=== PATIENT | male | born 1965 | race Caucasian/White ===

== ENCOUNTER 2017-01-21 17:02 | Emergency (ER) | payer MEDICAID, OTHER ==
[~2017-01-21] VITALS: Wt 90.9 kg
[2017-01-21] MEDS ORDERED: ACET500C5 PO (17:55)
[2017-01-21] MEDS ORDERED: ONDA4TAB14 PO (17:55)
[2017-01-21] MEDS ORDERED: AMOX1TAB10 PO (17:55)
--- NOTE | 2017-01-21 18:02 | ERD ---
ER Documentation Chief Complaint Date/Time DATE: 01/21/17 TIME: 17:57 Chief Complaint mackenzie s/p head trauma x2 wks ago. HPI Patient is a 51-year-old male who presents to the emergency department with a headache status post head injury approximately 2 weeks ago. Patient states on , he was cutting down wood at a friend's house when a piece of wood flew and hit him in the head. Patient at that time was seen at outside hospital. Patient states he had a laceration which was repaired with glue however he is unsure of he had any imaging studies done. Patient states he did lose consciousness at that time. Since this injury, patient continues to have pain in the occipital region. Patient reports nausea however he denies any vomiting , confusion, excessive sleepiness, loss of consciousness. Patient reports normal appetite. Patient is able to ambulate without any difficulty. Patient denied any blood thinner use. Patient also complaining of right molar pain. Patient states that he saw a dentist 2 months ago and was told he would need a root canal at that time. Patient has not followed up with the dentist. Patient denies any fevers, chills , active bleeding or discharge. Patient has normal range of motion of his neck. Patient denies any neck pain or neck stiffness. ROS All systems reviewed and are negative except as per history of present illness. Medications Home Meds Active Scripts Amoxicillin/Potassium Clav (Amox-Clav 875-125 mg Tablet) 875-125 mg Tab, 1 TAB PO BID for 7 Days, #14 TAB Prov:MANA FERRERA PA-C 01/21/17 Ondansetron (Ondansetron Odt) 4 Mg Tab.rapdis, 4 MG PO Q6H Y for NAUSEA AND/OR VOMITING, #10 TAB Prov:MANA FERRERA PA-C 01/21/17 Acetaminophen* (Tylophen*) 500 Mg Capsule, 1 CAP PO Q6H Y for PAIN AND OR ELEVATED TEMP, #20 CAP Prov:MANA FERRERA PA-C 01/21/17 PMhx/Soc History of Surgery: No Anesthesia Reaction: No Hx Neurological Disorder: No Hx Respiratory Disorders: No Hx Cardiac Disorders: No Hx Psychiatric Problems: No Hx Miscellaneous Medical Probl: No Hx Alcohol Use: Yes Hx Substance Use: Yes Hx Tobacco Use: Yes FmHx Family History: diabetes Physical Exam Vitals Vital Signs Date Time Temp Pulse Resp B/P Pulse Ox O2 Delivery O2 Flow Rate FiO2 01/21/17 19:28 98.3 78 18 148/88 98 Room Air 01/21/17 17:15 98.4 74 20 162/101 98 Physical Exam GENERAL: Well-developed, well-nourished male. Appears in no acute distress. Speaking in full sentences HEAD: Normocephalic, atraumatic. No deformities or ecchymosis. No scalp hematomas or swelling noted. Peeling dermabond noted in the patient's left parietal scalp. No active bleeding. Nontender to palpation of bilateral mastoid processes, no ecchymosis noted. EYE: Pupils equal, round, and reactive to light. EOMs intact. No conjunctival erythema. No eye discharge. No periorbital ecchymosis. ENT: External ear without any masses or tenderness. Auditory canals clear bilaterally. No hematotympanum bilaterally. TM visualized bilaterally, non- erythematous, non-bulging. Nasal mucosa pink with no discharge. Oropharynx is pink without any tonsillar erythema or exudates. No uvula deviation. No kissing tonsils. Poor dentition noted of the right molars. Right molars tender to palpation. NECK: Supple. No meningismus. Normal ROM of the neck. No neck stiffness noted. No cervical spine midline tenderness. LUNG: Clear to auscultation bilaterally. No rhonchi, wheezing, rales or coarse breath sounds. HEART: Regular rate and rhythm. No murmurs, rubs or gallops. BACK: No midline tenderness. EXTREMITIES: Equal pulses bilaterally. No peripheral clubbing, cyanosis or edema. No unilateral leg swelling. NEUROLOGIC: Alert and oriented x3, cooperative. Mood and affect appropriate to situation. Cranial nerves II through XII are grossly intact. Normal speech. Motor exam: 5/5 strength in upper and lower extremities. Sensory exam: Sensation intact to light touch on all four extremities. Cerebellar function exam: Rapid alternating movements intact. No dysmetria on vufmll-jj-[id number] test. Steady gait. No pronator drift. SKIN: Normal color. Warm and dry. No rashes or lesions. Procedures/MDM ED COURSE: The patient was stable throughout ED course. I kept the patient and/or family informed of laboratory and diagnostic imaging results throughout the ED course. DIAGNOSTIC IMAGING: Read by radiologist. DIAGNOSTIC IMAGING REPORT Patient: ALICIA RUELAS : 1965 Age: 51 Sex: M MR #: [id number] DOS: 01/21/17 1746 Ordering MD: MANA FERRERA PA-C Location: [facility] Room/Bed: PROCEDURE: CT Head without. CLINICAL INDICATION: Headaches status post trauma. TECHNIQUE: The study was performed utilizing a multi-slice, multidetector CT scanner. Direct spiral 1 mm axial sections were obtained through the head without the use of intravenous contrast material. 1 or more of the following dose reduction techniques were utilized: Automated exposure control, adjustment of the mA and/or kV according to patient's size, iterative reconstruction technique. Coronal and sagittal reformations were obtained. The images were reviewed on a PACS workstation. RADIATION DOSE: CTDIvol: 42.4 mGy DLP: 720.2 a.m. mGy-cm COMPARISON: No prior studies are available for comparison. FINDINGS: There is no intracranial hemorrhage, extra-axial fluid collection, mass lesion, midline shift or hydrocephalus. The ventricles, sulci and cisterns are within normal limits. The white matter is unremarkable. The bowser-white matter differentiation is preserved. The basal cisterns are patent. The midline structures are intact. There is mild soft tissue swelling in the frontal region without evidence of underlying calvarial fracture. The orbits are normal in appearance. The visualized paranasal sinuses, mastoid air cells and middle ear cavities are normally aerated. IMPRESSION: 1. No acute intracranial abnormality. No intracranial hemorrhage, extra-axial fluid collection, mass lesion or hydrocephalous. 2. Soft tissue swelling in the frontal region without evidence of underlying calvarial fracture. RPTAT: HGAS .Washington Orozco MD, MD Date Time Electronically viewed and signed by .Washington Orozco MD, MD on 01/21/2017 18: 54 .S/ CC: MANA FERRERA PA-C DIAGNOSTIC IMAGING REPORT Patient: ALICIA RUELAS : 1965 Age: 51 Sex: M MR #: [id number] DOS: 01/21/17 1746 Ordering MD: MANA FERRERA PA-C Location: [facility] Room/Bed: PROCEDURE: CT Head without. CLINICAL INDICATION: Headaches status post trauma. TECHNIQUE: The study was performed utilizing a multi-slice, multidetector CT scanner. Direct spiral 1 mm axial sections were obtained through the head without the use of intravenous contrast material. 1 or more of the following dose reduction techniques were utilized: Automated exposure control, adjustment of the mA and/or kV according to patient's size, iterative reconstruction technique. Coronal and sagittal reformations were obtained. The images were reviewed on a PACS workstation. RADIATION DOSE: CTDIvol: 42.4 mGy DLP: 720.2 a.m. mGy-cm COMPARISON: No prior studies are available for comparison. FINDINGS: There is no intracranial hemorrhage, extra-axial fluid collection, mass lesion, midline shift or hydrocephalus. The ventricles, sulci and cisterns are within normal limits. The white matter is unremarkable. The bowser-white matter differentiation is preserved. The basal cisterns are patent. The midline structures are intact. There is mild soft tissue swelling in the frontal region without evidence of underlying calvarial fracture. The orbits are normal in appearance. The visualized paranasal sinuses, mastoid air cells and middle ear cavities are normally aerated. IMPRESSION: 1. No acute intracranial abnormality. No intracranial hemorrhage, extra-axial fluid collection, mass lesion or hydrocephalous. 2. Soft tissue swelling in the frontal region without evidence of underlying calvarial fracture. RPTAT: HGAS .Washington Orozco MD, MD Date Time Electronically viewed and signed by .Washington Orozco MD, MD on 01/21/2017 18: 54 .S/ CC: MANA FERRERA PA-C PROCEDURES: None. Medical Decision Making: This is a 51-year-old male who presents with a headache status post a head injury 2 weeks ago and right molar tooth pain. Vital signs were reviewed. Patient is afebrile. Patient is not hypoxic. Patient denied any blood thinner use. Patient did admit to some nausea however he denied any vomiting, acute confusion, excessive sleepiness or loss of consciousness since the initial injury. Patient is well-appearing with no signs of significant injury. CT imaging of the brain showed No acute intracranial abnormality. No intracranial hemorrhage, extra-axial fluid collection, mass lesion or hydrocephalous. Soft tissue swelling in the frontal region without evidence of underlying calvarial fracture. CT cervical spine showed No acute abnormality of the cervical spine. No evidence of fracture or dislocation. Mild spondylosis at C5-6 and C6-7 without significant narrowing of the cervical thecal sac or neural foramina. Given at this time, the patient's presentation is most consistent with headaches and cervical spondylosis.. Low suspicion for intracranial hemorrhage , intracranial edema, mass-effect, midline shift, skull fracture, cervical spine fracture, spine dislocation, torticollis. Patient's tooth pain is likely due to dental caries versus dental abscess. At this time I will treat the patient with a course of antibiotics. Patient was advised to follow-up with his dentist in the next 1-2 days. Referral information provided. Prescriptions: Tylenol, Zofran, Augmentin Discharge: At this time, patient is stable for discharge and outpatient management. Patient was advised to take medication as needed. Patient given a copy of all imaging studies obtained today. Strict head injury return precautions are discussed with patient. Patient was advised to follow-up with his dentist in the next 1-2 days. Patient was given referral information for dentist.. She was advised to closely monitor his symptoms and return to the ER immediately for any new or worsening symptoms including increased pain, headache, nausea, vomiting, weakness, numbness, confusion, excessive sleepiness, seizures or LOC. Patient should follow-up with his/her primary care physician in 1-2 days. The patient and/or family expressed understanding of and agreement with this plan. All questions were answered. Home care instructions were provided. Patients blood pressure was elevated (>120/80) but appears stable without evidence of hypertensive emergency, hypertensive urgency or end-organ failure. I had discussion with the patient about the risks of hypertension. I have advised the patient to follow up with his/her primary care physician for outpatient monitoring and treatment for hypertension in 2-3 days. I have instructed the patient to return to the ER for any new or worsening symptoms including chest pain, shortness of breath, headache, blurred vision, confusion, nausea, vomiting or LOC. Departure Diagnosis: Primary Impression: Headache Headache type: unspecified Headache chronicity pattern: unspecified pattern Intractability: not intractable Qualified Code: R51 - Nonintractable headache, unspecified chronicity pattern, unspecified headache type Additional Impression: Tooth pain Condition: Stable Patient Instructions: Self-Care for Headaches Referrals: [facility] YOU HAVE RECEIVED A MEDICAL SCREENING EXAM AND THE RESULTS INDICATE THAT YOU DO NOT HAVE A CONDITION THAT REQUIRES URGENT TREATMENT IN THE EMERGENCY DEPARTMENT. FURTHER EVALUATION AND TREATMENT OF YOUR CONDITION CAN WAIT UNTIL YOU ARE SEEN IN YOUR DOCTORS OFFICE WITHIN THE NEXT 1-2 DAYS. IT IS YOUR RESPONSIBILITY TO MAKE AN APPOINTMENT FOR FOLOW-UP CARE. IF YOU HAVE A PRIMARY DOCTOR --you should call your primary doctor and schedule an appointment IF YOU DO NOT HAVE A PRIMARY DOCTOR YOU CAN CALL OUR PHYSICIAN REFERRAL HOTLINE AT IF YOU CAN NOT AFFORD TO SEE A PHYSICIAN YOU CAN CHOSE FROM THE FOLLOWING [facility] [address] [facility]. [facility] [address] [facility] [facility] [address] [facility] [facility] [address] [facility] [facility] [address] [facility]. [facility]. [address] [facility]. [facility] YOU HAVE RECEIVED A MEDICAL SCREENING EXAM AND THE RESULTS INDICATE THAT YOU DO NOT HAVE A CONDITION THAT REQUIRES URGENT TREATMENT IN THE EMERGENCY DEPARTMENT. FURTHER EVALUATION AND TREATMENT OF YOUR CONDITION CAN WAIT UNTIL YOU ARE SEEN IN YOUR DOCTORS OFFICE WITHIN THE NEXT 1-2 DAYS. IT IS YOUR RESPONSIBILITY TO MAKE AN APPOINTMENT FOR FOLOW-UP CARE. IF YOU HAVE A PRIMARY DOCTOR --you should call your primary doctor and schedule and appointment IF YOU DO NOT HAVE A PRIMARY DOCTOR YOU CAN CALL OUR PHYSICIAN REFERRAL HOTLINE AT . IF YOU CAN NOT AFFORD TO SEE A PHYSICIAN YOU CAN CHOSE FROM THE FOLLOWING [facility] INSTITUTIONS[facility] [address] [place] [address] [facility] [address] [place] [address] [facility] + [facility] [address] [place] [address] [facility] DENTIST ([facility] walk in clinic) Additional Instructions: Call your primary care doctor TOMORROW for an appointment during the next 1-2 days.See the doctor sooner or return here if your condition worsens before your appointment time. Follow-up with your dentist in the next 1-2 days. See referral information. Take antibiotics as prescribed. Strict head injury precautions discussed with the patient. Patient advised to return to the ED for any new or worsening symptoms including severe pain, nausea , vomiting, confusion, excessive sleepiness or loss consciousness. MANA FERRERA PA-C Jan 21, 2017 18:02 MANA FERRERA PA-C Jan 21, 2017 18:02
--- NOTE | 2017-01-21 18:54 | RADRPT ---
PROCEDURE: CT Head without. CLINICAL INDICATION: Headaches status post trauma. TECHNIQUE: The study was performed utilizing a multi-slice, multidetector CT scanner. Direct spira l 1 mm axial sections were obtained through the head without the use of intravenous contrast materia l. 1 or more of the following dose reduction techniques were utilized: Automated exposure control, adjustment of the mA and/or kV according to patient's size, iterative reconstruction technique. Co stefanie and sagittal reformations were obtained. The images were reviewed on a PACS workstation. RADIATION DOSE: CTDIvol: 42.4 mGyDLP: 720.2 a.m. mGy-cm COMPARISON: No prior studies are available for comparison. FINDINGS: There is no intracranial hemorrhage, extra-axial fluid collection, mass lesion, midline shift or hyd rocephalus. The ventricles, sulci and cisterns are within normal limits. The white matter is unrem arkable. The bowser-white matter differentiation is preserved. The basal cisterns are patent. The m idline structures are intact. There is mild soft tissue swelling in the frontal region without evid ence of underlying calvarial fracture. The orbits are normal in appearance. The visualized paranasa l sinuses, mastoid air cells and middle ear cavities are normally aerated. IMPRESSION: 1. No acute intracranial abnormality. No intracranial hemorrhage, extra-axial fluid collection, mas s lesion or hydrocephalous. 2. Soft tissue swelling in the frontal region without evidence of underlying calvarial fracture. RPTAT: HGAS .Washington Orozco MD, MD Date Time Electronically viewed and signed by .Washington Orozco MD, on 01/21/2017 18:54 .S/
--- NOTE | 2017-01-21 19:02 | RADRPT ---
PROCEDURE: CT Cervical Spine without contrast. CLINICAL INDICATION: Cervical spine pain status post injury. TECHNIQUE: The study was performed on a multislice multidetector CT scanner. Spiral axial 1 mm im ages were obtained through the cervical spine and reformatted at 2.5 mm slice thickness without cont rast. 1 or more of the following dose reduction techniques were utilized: Automated exposure contr ol, adjustment of the mA and/or kV according to patient's size, iterative reconstruction technique. Coronal and sagittal reformations were obtained. The images were reviewed on a PACS workstation. RADIATION DOSE: CTDIvol: 22.2 mGyDLP: 486.2 mGy-cm COMPARISON: No prior studies are available for comparison. FINDINGS: There is diffuse straightening of the cervical spine without reversal of normal cervical lordosis. The vertebral body heights are maintained. There is no evidence of fracture or dislocation. The ma rrow density is within normal limits. There are anterior osteophytes at C5-6 and C6-7 with preservat ion of the intervertebral disc spaces. The cervical canal is unremarkable. There is a no bone destru ction or sclerosis. The paraspinal soft tissues are unremarkable. No significant paraspinal soft ti ssue swelling. C2-3: There is a 1-2 mm posterior disc/osteophyte complex. The thecal sac and neural foramina are p atent. C3-4: There is a 1-2 mm posterior disc/osteophyte complex. The thecal sac and neural foramina are p atent. C4-5: There is a 1-2 mm posterior disc/osteophyte complex. The thecal sac and neural foramina are p atent. C5-6: There is a 1-2 mm posterior disc/osteophyte complex. The thecal sac and neural foramina are p atent. C6-7: There is a broad-based 2-3 mm posterior disc/osteophyte complex. The thecal sac and neural f oramina are patent. C7-T1: The posterior margin of the disc, thecal sac and neural foramina are normal in appearance. IMPRESSION: 1. No acute abnormality of the cervical spine. No evidence of fracture or dislocation. 2. Mild spondylosis at C5-6 and C6-7 without significant narrowing of the cervical thecal sac or ne ural foramina. RPTAT: HGAS .Washington Orozco MD, MD Date Time Electronically viewed and signed by .Washington Orozco MD, MD on 01/21/2017 19:01 .S/
[2017-01-21 19:28] VITALS: BP 148/88; PULSE 78; RESP 18; TEMP 98.3
== END 2017-01-21 19:30 | disposition home or self-care (01) ==
LOC: FTE 17:02
DX: R51 Headache (principal); K08.89 Other specified disorders of teeth and supporting structures; R11.0 Nausea; Z87.891 Personal history of nicotine dependence
CPT/HCPCS: 70450; 72125